=== PATIENT | female | born 1960 | race African-American/Black ===

== ENCOUNTER 2018-07-07 01:49 | Inpatient (IN) | payer MEDICARE, MEDICAID ==
[~2018-07-07] VITALS: Ht 172.7 cm; Wt 72.6 kg
[~2018-07-07 01:49] MED LIST: IBUP-1008 PO; RANI15SY PO
[2018-07-07 05:08] LABS: CHLORIDE 97 mEq/L (98-107)
[2018-07-07 05:09] LABS: BASOPHILS % 0.3 % (0.0-2.0); HEMATOCRIT. 42.6 % (36.0-48.0); HEMOGLOBIN. 14.3 g/dL (12.0-16.0); LYMPHOCYTES % 21.8 % (20.0-50.0); MEAN CORPUSCULAR HEMOGLOBIN 30.5 pg (28.0-32.0); MEAN CORPUSCULAR VOLUME 90.7 fL (81.0-99.0); MEAN PLATELET VOLUME 8.1 fl (7.4-10.4); MONOCYTES % 6.9 % (2.0-8.0); PLATELET 285 x1000/uL (130-400); RED BLOOD CELL COUNT 4.69 mill/uL (4.2-5.4); RED CELL DISTRIBUTION WIDTH 13.4 % (11.6-14.6)
[2018-07-07] MEDS ORDERED: PIPERACILLIN/TAZ 3.375G PREMIX 50 ML IV ONE (05:30)
[2018-07-07] MEDS ORDERED: SODIUM CHLORIDE 0.9% 1000ML BAG (SEPSIS BOLUS) IV ONE (05:30)
[2018-07-07] MEDS ORDERED: VANCOMYCIN 1 G PREMIX 200 ML IV ONE (05:30)
[2018-07-07] MEDS ORDERED: LISINOPRIL 5MG TABLET PO ONE (05:45)
[2018-07-07] MEDS ORDERED: SODIUM CHLORIDE 0.45% 1,000 ML IV SCH (08:22)
[2018-07-07] MEDS ORDERED: NA PHOS,M-B/NA PHOS,DI-BA ENEMA 118ML PR PRN ×2 (08:30→10:45)
[2018-07-07] MEDS ORDERED: METHYLPREDNISOLONE SOD SUCC 125 MG/2 ML VIAL IV SCH (08:30)
[2018-07-07] MEDS ORDERED: ONDANSETRON HCL 4MG/2ML INJ IV PRN ×2 (08:30→11:00)
[2018-07-07] MEDS ORDERED: ACETAMINOPHEN 650MG SUPP PR PRN ×2 (08:30→11:00)
[2018-07-07] MEDS ORDERED: HYDROCODONE/ACETAMINOPHEN 5/325MG TABLET PO PRN ×2 (08:30→11:00)
[2018-07-07] MEDS ORDERED: MAGNESIUM/ALUMINUM HYDROXIDE/SIMETHICONE 30ML UDC PO PRN ×2 (08:30→11:00)
[2018-07-07] MEDS ORDERED: IPRATROPIUM/ALBUTEROL 0.5-3(2.5)MG/3ML NEB INH PRN ×2 (08:30→10:45)
[2018-07-07] MEDS ORDERED: ACETAMINOPHEN 325MG TABLET PO PRN ×2 (08:30→11:00)
[2018-07-07] MEDS ORDERED: ACETAMINOPHEN 650MG/20.3ML UDC GT PRN ×2 (08:30→11:00)
[2018-07-07] MEDS: CLONIDINE 0.1MG TABLET PO PRN ×4 (10:23→17:43)
[2018-07-07] MEDS ORDERED: CLONIDINE 0.1MG TABLET ONE (10:29)
[2018-07-07 11:10] VITALS: BP 164/70
[2018-07-07] MEDS ORDERED: METF-415 MT (12:51)
[2018-07-07] MEDS ORDERED: LISI-186 MT (12:51)
[2018-07-07] MEDS ORDERED: ATOR10TA69 MT (12:51)
[2018-07-07] MEDS ORDERED: OMEP20TA15 MT (12:52)
[2018-07-07] MEDS ORDERED: NORT75CA MT (12:53)
[2018-07-07] MEDS ORDERED: SODIUM CHLORIDE 0.9% INJ 3ML FLUSH IVF SCH (14:00)
[2018-07-07] MEDS: METHYLPREDNISOLONE SOD SUCC 125 MG/2 ML VIAL IV SCH ×3 (14:09→23:43)
[2018-07-07] MEDS: SODIUM CHLORIDE 0.45% 1,000 ML IV SCH (14:10)
[2018-07-07] MEDS: SODIUM CHLORIDE 0.9% INJ 3ML FLUSH IVF SCH ×2 (14:10→21:00)
[2018-07-07] MEDS ORDERED: MAGNESIUM CITRATE 300ML SOLUTION PO NR (15:15)
[2018-07-07 16:00] VITALS: BP 170/94
[2018-07-07] MEDS ORDERED: MONTELUKAST SODIUM 10MG TABLET PO SCH (17:00)
[2018-07-07 20:00] VITALS: BP 116/68
[2018-07-08] VITALS: BP 123/69
[2018-07-08] MEDS ORDERED: DEXTROSE 50% WATER 50ML SYRINGE IV PRN (00:45)
[2018-07-08] MEDS ORDERED: NORTRIPTYLINE HCL 25MG CAPSULE PO SCH (01:30)
[2018-07-08] MEDS: SODIUM CHLORIDE 0.45% 1,000 ML IV SCH (02:01)
[2018-07-08 04:00] VITALS: BP 125/70
[2018-07-08] MEDS: BLOOD SUGAR DIAGNOSTIC STRIP TEST SCH ×2 (05:39→12:41)
[2018-07-08] MEDS: SODIUM CHLORIDE 0.9% INJ 3ML FLUSH IVF SCH (05:48)
[2018-07-08] MEDS: METHYLPREDNISOLONE SOD SUCC 125 MG/2 ML VIAL IV SCH ×2 (05:48→12:41)
[2018-07-08] MEDS: INSULIN LISPRO 100 UNITS/ML SUBCUT SCH ×2 (06:05→12:43)
[2018-07-08] MEDS ORDERED: OMEPRAZOLE 20MG CAPSULE EXTENDED RELEASE PO SCH (07:10)
[2018-07-08] MEDS ORDERED: METFORMIN HCL 850MG TABLET PO SCH (07:40)
[2018-07-08 08:00] VITALS: BP 134/70
[2018-07-08] MEDS ORDERED: POTASSIUM CHLORIDE 20MEQ TABLET SR PO SCH (09:00)
[2018-07-08] MEDS ORDERED: LISINOPRIL 5MG TABLET PO SCH (09:00)
[2018-07-08 12:00] VITALS: BP 125/47
[2018-07-08 14:19] VITALS: BP 125/47
[2018-07-08] MEDS ORDERED: ATORVASTATIN CALCIUM 10MG TABLET PO SCH (21:00)
== END 2018-07-08 16:28 | disposition home or self-care (01) | DRG 155 ==
LOC: ER 01:49 → 8WST 05:38 → ENRESERV 09:23 → ER 10:55
PROVIDERS: ADMIT Family Medicine; ATTEND Family Medicine
DX: J39.2 Other diseases of pharynx (principal); J39.0 Retropharyngeal and parapharyngeal abscess; E11.9 Type 2 diabetes mellitus without complications; E78.5 Hyperlipidemia, unspecified; I10 Essential (primary) hypertension; Z88.8 Allergy status to other drugs, medicaments and biological substances; Z79.84 Long term (current) use of oral hypoglycemic drugs; Z79.899 Other long term (current) drug therapy
CPT/HCPCS: 36415; 70490; 71045; 74021; 80305; 82962; 83036; 83605; 84145; 93005; 96365; 96375; 99285; C1893; J1815; J2543; J2930; J3370; J7030; J7620